=== PATIENT | male | born 1985 | race African-American/Black ===

== ENCOUNTER 2017-08-09 03:25 | Emergency (ER) | payer OTHER ==
[~2017-08-09] VITALS: Ht 188 cm; Wt 189.4 kg
[2017-08-09] MEDS ORDERED: B/P MED (03:41)
[2017-08-09] MEDS ORDERED: CEPHALEXIN500 M1 PO (03:48)
[2017-08-09] MEDS ORDERED: MUPIROCIN21 TOP (03:48)
[2017-08-09 04:15] VITALS: BP 170/99
== END 2017-08-09 04:15 | disposition home or self-care (01) | DRG 603 ==
LOC: ED 03:25
DX: L03.116 Cellulitis of left lower limb (principal); I10 Essential (primary) hypertension

== ENCOUNTER 2021-03-13 17:53 | Emergency (ER) | payer OTHER ==
[~2021-03-13] VITALS: Ht 188 cm; Wt 249.4 kg
[~2021-03-13 17:53] MED LIST: B/P MED; CEPHALEXIN500 M1 PO; MUPIROCIN21 TOP
[2021-03-13] MEDS ORDERED: KEFLEX500 MG PO (20:32)
[2021-03-13 21:00] VITALS: BP 169/105
== END 2021-03-13 21:00 | disposition home or self-care (01) | DRG 914 ==
LOC: ED 17:53
PROC: 0JCQ3ZZ Extirpation of Matter from Right Foot Subcutaneous Tissue and Fascia, Percutaneous Approach (ICD-10-PCS; principal; 2021-03-13)
DX: S91.341A Puncture wound with foreign body, right foot, initial encounter (principal); I10 Essential (primary) hypertension; W45.8XXA Other foreign body or object entering through skin, initial encounter; Y92.009 Unspecified place in unspecified non-institutional (private) residence as the place of occurrence of the external cause

== ENCOUNTER 2021-04-01 06:13 | Emergency (ER) | payer OTHER ==
[~2021-04-01] VITALS: Ht 188 cm; Wt 227.0 kg
[~2021-04-01 06:13] MED LIST changes: +KEFLEX500 MG PO
[2021-04-01] MEDS ORDERED: DOXYCYCLINE100 MG PO (06:35)
[2021-04-01 07:01] LABS: URINE BILIRUBIN - DIPSTICK NEGATIVE (NEGATIVE); URINE BLOOD DIPSTICK NEGATIVE (NEGATIVE); URINE COLOR YELLOW; URINE GLUCOSE - DIPSTICK NEGATIVE (NEGATIVE); URINE KETONE NEGATIVE (NEGATIVE); URINE LEUK ESTERASE TRACE (NEGATIVE); URINE PROTEIN - DIPSTICK NEGATIVE (NEG-TRACE); URINE SPECIFIC GRAVITY 1.025; URINE UROBILINOGEN - DIPSTICK 0.2 E.U./dL (0.2)
[2021-04-01 07:17] LABS: URINE NITRITE - DIPSTICK NEGATIVE (Negative)
[2021-04-01] MEDS ORDERED: MAXZIDE-2537.5 MG/TA PO (08:12)
[2021-04-01 08:26] VITALS: BP 178/101
== END 2021-04-01 08:30 | disposition home or self-care (01) | DRG 696 ==
LOC: ED 06:13
DX: R30.0 Dysuria (principal); L29.8 Other pruritus; I10 Essential (primary) hypertension; Z20.2 Contact with and (suspected) exposure to infections with a predominantly sexual mode of transmission

== ENCOUNTER 2021-04-23 11:33 | Emergency (ER) | payer OTHER ==
[~2021-04-23] VITALS: Ht 188 cm; Wt 248.0 kg
[~2021-04-23 11:33] MED LIST changes: +DOXYCYCLINE100 MG PO; +MAXZIDE-2537.5 MG/TA PO
[2021-04-23 12:38] LABS: HEMATOCRIT 38.4 % (39.0-50.0)
[2021-04-23 12:54] VITALS: BP 145/67
[2021-04-23] MEDS ORDERED: HYDROCORTISONE12 TOP (13:07)
[2021-04-23] MEDS ORDERED: ANUCORT-HC25 M1 RE (13:07)
== END 2021-04-23 12:57 | disposition home or self-care (01) | DRG 378 ==
LOC: ED 11:33
PROVIDERS: Family Medicine
DX: K92.1 Melena (principal); S30.817A Abrasion of anus, initial encounter; I10 Essential (primary) hypertension; E66.01 Morbid (severe) obesity due to excess calories; Z68.45 Body mass index [BMI] 70 or greater, adult; X58.XXXA Exposure to other specified factors, initial encounter

== ENCOUNTER 2022-04-09 12:12 | Emergency (ER) | payer OTHER ==
[2022-04-09] VITALS (20 sets, daily range): BP systolic 176–232; BP diastolic 99–140
[~2022-04-09] VITALS: Ht 188 cm; Wt 241.0 kg
[~2022-04-09 12:12] MED LIST changes: +ANUCORT-HC25 M1 RE; +HYDROCORTISONE12 TOP
[2022-04-09] MEDS ORDERED: NAPROXEN500 MG PO (14:51)
[2022-04-09] MEDS ORDERED: PENICILLN VK500 MG PO ×2 (14:51→15:13)
[2022-04-09] MEDS ORDERED: MAXZIDE-25MG1 COMBO PO (17:05)
== END 2022-04-09 17:56 | disposition home or self-care (01) | DRG 159 ==
LOC: ED 12:12
DX: K04.7 Periapical abscess without sinus (principal); I10 Essential (primary) hypertension